=== PATIENT | female | born 1965 | race Caucasian/White ===

== ENCOUNTER 2017-08-10 02:00 | Inpatient (IN) | payer MEDICARE, MEDICAID ==
[~2017-08-10] VITALS: Ht 162.6 cm; Wt 52.6 kg
[2017-08-10 04:49] VITALS: BP 126/91
[2017-08-10 07:57] LABS: APPEARANCE,URINE CLEAR (CLEAR); GLUCOSE, URINE (UA) NEGATIVE (NEGATIVE); KETONES,URINE NEGATIVE (NEGATIVE); LEUKOCYTE ESTERASE ,URINE NEGATIVE (NEGATIVE); OCCULT BLOOD,URINE NEGATIVE (NEGATIVE); PH,URINE 6.5 (5.0-8.0); PROTEIN,URINE NEGATIVE (NEGATIVE)
[2017-08-10 08:00] LABS: ADD UA MICROSCOPIC NO
[2017-08-10 08:02] VITALS: BP 125/86
[2017-08-10] MEDS ORDERED: IBUPROFEN 600 MG TABLET PO PRN (09:00)
[2017-08-10] MEDS ORDERED: BENZOCAINE/MENTHOL LOZENGE [8 LOZENGES/PACKET] MM PRN (09:00)
[2017-08-10] MEDS ORDERED: PETROLATUM,WHITE 71 GM JELLY TP PRN (09:00)
[2017-08-10] MEDS ORDERED: ALBUTEROL SULFATE HFA 90 MCG/PUFF 8 GM INHALER IH PRN (09:00)
[2017-08-10] MEDS ORDERED: CloNIDine HCL 0.1 MG TABLET PO PRN (09:00)
[2017-08-10] MEDS ORDERED: LOPERAMIDE HCL 2 MG CAPSULE PO PRN (09:00)
[2017-08-10] MEDS ORDERED: MAG HYDROX/AL HYDROX/SIMETH ES 30 ML SUSPENSION UDCUP PO PRN (09:00)
[2017-08-10] MEDS ORDERED: ONDANSETRON HCL 4 MG TABLET PO PRN (09:00)
[2017-08-10] MEDS ORDERED: MAGNESIUM HYDROXIDE SUSPENSION 30 ML UDCUP PO PRN (09:00)
[2017-08-10] MEDS ORDERED: BACITRACIN 28.4 GM OINTMENT TP PRN (09:00)
[2017-08-10] MEDS ORDERED: ACETAMINOPHEN 325 MG TABLET PO PRN (09:00)
[2017-08-10] MEDS: LevETIRAcetam 500 MG TABLET PO SCH ×2 (11:36→16:17)
[2017-08-10] MEDS: TOPIRAMATE 25 MG TABLET PO SCH ×2 (11:37→17:12)
[2017-08-10] MEDS: GABAPENTIN 100 MG CAPSULE PO SCH ×2 (11:37→16:17)
[2017-08-10 17:11] VITALS: BP 101/57
[2017-08-10] MEDS ORDERED: OLANZapine 10 MG TABLET PO SCH (21:00)
[2017-08-10] MEDS: GABAPENTIN 300 MG CAPSULE PO SCH (21:22)
[2017-08-10] MEDS: BENZOCAINE 10% 7 GM GEL TP PRN (22:55)
[2017-08-10] MEDS: ZOLPIDEM TARTRATE 10 MG TABLET PO PRN (23:20)
[2017-08-11 06:31] LABS: BASOPHILS % (AUTO) 0.7 % (0.0-2.0); EOSINOPHILS % (AUTO) 3.1 % (1.0-6.0); HEMOGLOBIN 12.5 g/dL (12.0-16.0); LYMPHOCYTES # (AUTO) 3.6 K/uL (1.0-4.8); LYMPHOCYTES % (AUTO) 47.7 % (22.0-44.0); MEAN CORPUSCULAR HGB CONC 33.8 G/dL (31.0-37.0); MEAN CORPUSCULAR VOLUME 95 fL (80-100); MONOCYTES # (AUTO) 0.4 K/uL (0.1-1.0); MONOCYTES % (AUTO) 5.4 % (2.0-9.0); NEUTROPHILS # (AUTO) 3.2 K/uL (1.8-7.7); NEUTROPHILS % (AUTO) 43.1 % (40.0-70.0); PLATELET COUNT (AUTO) 298 K/uL (150-450); RED BLOOD CELL COUNT(AUTO) 3.91 MIL/uL (4.00-5.20); RED CELL DISTRIBUTION WIDTH 13.4 % (11.5-14.5); WHITE BLOOD COUNT (AUTO) 7.5 K/uL (4.5-11.0)
[2017-08-11 06:56] LABS: ALANINE AMINOTRANSFERASE 24 U/L (12-78); ALBUMIN 3.8 g/dL (3.4-5.0); ANION GAP 7 mmol/L (8-16); ASPARTATE AMINOTRANSFERASE 19 U/L (15-37); BILIRUBIN,TOTAL 0.3 mg/dL (0.1-1.0); CALCIUM, TOTAL 9.3 mg/dL (8.8-10.5); CARBON DIOXIDE 30 mmol/L (22-29); CHLORIDE 108 mmol/L (98-107); CHOL/HDL RATIO 2.4 (3.9-5.7); CREATININE 0.87 mg/dL (0.60-1.30); GLOMERULAR FILTR. RATE CALC > 60 mL/min (>60); POTASSIUM 4.1 mmol/L (3.5-5.1); SODIUM SERUM 145 mmol/L (136-145); THYROID STIMULATING HORMONE 0.52 uIU/mL (0.36-3.74); TOTAL PROTEIN, SERUM 6.9 g/dL (6.4-8.2); UREA NITROGEN, BLOOD 10 mg/dL (7-18)
[2017-08-11] MEDS: GABAPENTIN 100 MG CAPSULE PO SCH ×2 (09:16→17:49)
[2017-08-11] MEDS: TOPIRAMATE 25 MG TABLET PO SCH ×2 (09:16→17:50)
[2017-08-11] MEDS: LevETIRAcetam 500 MG TABLET PO SCH ×2 (09:16→17:49)
[2017-08-11] MEDS: BENZOCAINE 10% 7 GM GEL TP PRN (10:56)
[2017-08-11 11:39] VITALS: BP 111/69
[2017-08-11] MEDS: HALOPERIDOL 5 MG TABLET PO PRN (12:37)
[2017-08-11] MEDS: LORazepam 2 MG TABLET PO PRN (12:38)
[2017-08-11] MEDS ORDERED: DiphenhydrAMINE HCL 50 MG/ML VIAL IM ONE ×2 (13:30)
[2017-08-11] MEDS ORDERED: HALOPERIDOL LACTATE 5 MG/ML VIAL IM ONE ×2 (13:30)
[2017-08-11 19:23] VITALS: BP 109/71
[2017-08-11] MEDS: HALOPERIDOL 10 MG TABLET PO SCH (21:00)
[2017-08-11] MEDS: GABAPENTIN 300 MG CAPSULE PO SCH (21:42)
[2017-08-12] MEDS: TOPIRAMATE 25 MG TABLET PO SCH ×2 (09:18→16:15)
[2017-08-12] MEDS: LevETIRAcetam 500 MG TABLET PO SCH ×2 (09:18→16:16)
[2017-08-12] MEDS: GABAPENTIN 100 MG CAPSULE PO SCH (09:18)
[2017-08-12 09:58] VITALS: BP 119/56
[2017-08-12] MEDS: OMEPRAZOLE 20 MG CAPSULE PO SCH (13:17)
[2017-08-12] MEDS: ASPIRIN 81 MG CHEWABLE TABLET PO SCH (13:17)
[2017-08-12] MEDS: LORazepam 2 MG TABLET PO PRN (16:15)
[2017-08-12 17:59] VITALS: BP 110/71
[2017-08-12] MEDS: HALOPERIDOL 10 MG TABLET PO SCH (21:00)
[2017-08-12] MEDS: ATORVASTATIN CALCIUM 20 MG TABLET PO SCH (21:26)
[2017-08-12] MEDS: GABAPENTIN 300 MG CAPSULE PO SCH (21:30)
[2017-08-13] MEDS: OMEPRAZOLE 20 MG CAPSULE PO SCH (08:46)
[2017-08-13] MEDS: LevETIRAcetam 500 MG TABLET PO SCH ×2 (08:46→16:09)
[2017-08-13] MEDS: ASPIRIN 81 MG CHEWABLE TABLET PO SCH (08:46)
[2017-08-13] MEDS: TOPIRAMATE 25 MG TABLET PO SCH ×2 (08:47→16:10)
[2017-08-13 09:01] VITALS: BP 116/79
[2017-08-13] MEDS: LORazepam 2 MG TABLET PO PRN ×2 (15:52→22:41)
[2017-08-13 21:12] VITALS: BP 122/82
[2017-08-13] MEDS: GABAPENTIN 300 MG CAPSULE PO SCH (22:38)
[2017-08-13] MEDS: ATORVASTATIN CALCIUM 20 MG TABLET PO SCH (22:39)
[2017-08-13] MEDS: HALOPERIDOL 10 MG TABLET PO SCH (22:39)
[2017-08-14] MEDS: ASPIRIN 81 MG CHEWABLE TABLET PO SCH (08:49)
[2017-08-14] MEDS: TOPIRAMATE 25 MG TABLET PO SCH ×2 (08:49→16:33)
[2017-08-14] MEDS: OMEPRAZOLE 20 MG CAPSULE PO SCH (08:49)
[2017-08-14] MEDS: LevETIRAcetam 500 MG TABLET PO SCH ×2 (08:49→16:33)
[2017-08-14 10:25] VITALS: BP 131/76
[2017-08-14] MEDS: LORazepam 2 MG TABLET PO PRN (16:33)
[2017-08-14 17:00] VITALS: BP 111/74
[2017-08-14] MEDS: HALOPERIDOL 10 MG TABLET PO SCH (21:16)
[2017-08-14] MEDS: ATORVASTATIN CALCIUM 20 MG TABLET PO SCH (21:16)
[2017-08-14] MEDS: GABAPENTIN 300 MG CAPSULE PO SCH (21:16)
[2017-08-15 04:30] VITALS: BP 131/79
[2017-08-15] MEDS: HALOPERIDOL 5 MG TABLET PO PRN (04:39)
[2017-08-15] MEDS: LORazepam 2 MG TABLET PO PRN (04:39)
[2017-08-15 08:05] VITALS: BP 123/77
[2017-08-15] MEDS: TOPIRAMATE 25 MG TABLET PO SCH (09:56)
[2017-08-15] MEDS: CHOLECALCIFEROL (VIT D3) 1,000 UNITS TABLET PO SCH (09:56)
[2017-08-15] MEDS: ASPIRIN 81 MG CHEWABLE TABLET PO SCH (09:56)
[2017-08-15] MEDS: LevETIRAcetam 500 MG TABLET PO SCH ×2 (09:56→16:54)
[2017-08-15] MEDS: OMEPRAZOLE 20 MG CAPSULE PO SCH (09:57)
[2017-08-15 16:45] VITALS: BP 101/65
[2017-08-15] MEDS: TOPIRAMATE 100 MG TABLET PO SCH (17:44)
[2017-08-15] MEDS: DULoxetine HCL 60 MG CAPSULE PO SCH (17:44)
[2017-08-15] MEDS: GABAPENTIN 300 MG CAPSULE PO SCH (20:06)
[2017-08-15] MEDS: ATORVASTATIN CALCIUM 20 MG TABLET PO SCH (20:06)
[2017-08-15] MEDS: ZOLPIDEM TARTRATE 10 MG TABLET PO PRN (20:07)
[2017-08-15] MEDS ORDERED: OLANZapine 10 MG TABLET PO SCH (21:00)
[2017-08-16] MEDS: CHOLECALCIFEROL (VIT D3) 1,000 UNITS TABLET PO SCH (08:50)
[2017-08-16] MEDS: ASPIRIN 81 MG CHEWABLE TABLET PO SCH (08:51)
[2017-08-16] MEDS: DULoxetine HCL 60 MG CAPSULE PO SCH (08:51)
[2017-08-16] MEDS: OMEPRAZOLE 20 MG CAPSULE PO SCH (08:51)
[2017-08-16] MEDS: TOPIRAMATE 100 MG TABLET PO SCH (08:51)
[2017-08-16] MEDS: LevETIRAcetam 500 MG TABLET PO SCH (08:51)
[2017-08-16 09:37] VITALS: BP 118/74
[2017-08-16] MEDS ORDERED: DULO60CA44 PO (10:49)
[2017-08-16] MEDS ORDERED: LEVE500T53 PO (10:50)
[2017-08-16] MEDS ORDERED: TOPI100T37 PO (10:50)
[2017-08-16] MEDS ORDERED: GABA-531 PO (10:50)
[2017-08-16] MEDS ORDERED: OLAN10TA3 PO (10:50)
== END 2017-08-16 14:50 | disposition home or self-care (01) | DRG 885 ==
LOC: 3EX 02:00
PROVIDERS: ADMIT Psychiatry & Neurology Psychiatry; ATTEND Psychiatry & Neurology Psychiatry
DX: F20.0 Paranoid schizophrenia (principal); E44.1 Mild protein-calorie malnutrition; F12.90 Cannabis use, unspecified, uncomplicated; F32.9 Major depressive disorder, single episode, unspecified; G40.909 Epilepsy, unspecified, not intractable, without status epilepticus; G47.00 Insomnia, unspecified; K59.00 Constipation, unspecified; Z59.0 Homelessness; Z79.899 Other long term (current) drug therapy; F60.3 Borderline personality disorder
CPT/HCPCS: 80307; 82306; 84443; 99285; J1200; J1630